=== PATIENT | male | born 1955 ===

== ENCOUNTER 2022-03-15 05:00 | Day surgery (SDC) | payer OTHER ==
[~2022-03-15] VITALS: Ht 162.6 cm; Wt 76.2 kg
[~2022-03-15 05:00] MED LIST: CLONAZEPAM0.5 MG PO; FLUOX PO; GRALISE600 MG PO; MOBIC15 MG PO; TRAZODONE HCL150 MG PO; VASOTEC10 MG PO
== END 2022-03-15 09:40 | disposition home or self-care (01) ==
LOC: CIR.AMB 05:00
PROVIDERS: ATTEND Surgery Surgery of the Hand
DX: M65.841 Other synovitis and tenosynovitis, right hand (principal); Z88.0 Allergy status to penicillin; I10 Essential (primary) hypertension; G62.9 Polyneuropathy, unspecified; Z20.822 Contact with and (suspected) exposure to COVID-19